=== PATIENT | female | born 1985 | race Caucasian/White ===

== ENCOUNTER 2020-12-31 06:40 | Day surgery (SDC) | payer OTHER ==
[2020-12-31] MEDS ORDERED: Propofol 200 MG/20 ML SDV ONE (07:15)
[2020-12-31] MEDS ORDERED: fentaNYL 100 MCG/2 ML SDV ONE (07:15)
[2020-12-31] MEDS ORDERED: Midazolam 1 MG/ML 2 ML SDV ONE (07:15)
[2020-12-31] MEDS ORDERED: Cyanocobalamin (Vitamin B12) 1,000 MCG/ML SDV IM ONE (08:00)
[2020-12-31] MEDS ORDERED: Glycopyrrolate 0.2 MG/ML 2 ML SDV IVPUSH ONE (08:00)
[2020-12-31] MEDS ORDERED: Lactated Ringers 1,000 ML IV ONE (08:00)
[2020-12-31] MEDS ORDERED: MVI, Adult with Vitamin K 10 ML, Thiamine 200 MG, Zinc/Copper/Manganese/Selenium 1 ML i... IV ONE ×4 (09:00)
[2020-12-31] MEDS ORDERED: ferumoxytoL 510 MG in Sodium Chloride 0.9% 100 ML IV ONE (10:30)
--- NOTE | 2021-01-17 12:49 | OR ---
DATE OF PROCEDURE: 12/31/2020 SURGEON: Sergio Flynn MD PREOPERATIVE DIAGNOSIS: Weight regain status post Tory-en-Y gastric bypass. POSTOPERATIVE DIAGNOSIS: Weight regain status post Tory-en-Y gastric bypass with: 1. Large gastric pouch with focal pouch gastritis. 2. Gastrogastric fistula. PROCEDURE PERFORMED: Upper gastrointestinal endoscopy with biopsies of gastric pouch for CLOtest. ANESTHESIA: IV sedation. INDICATIONS FOR PROCEDURE: This is a 35-year-old status post previous Tory-en-Y gastric bypass. Over the past year, she has had increasing problems with weight regain. Plan is to proceed with upper GI endoscopy for diagnostic purposes. Potential risks including bleeding and perforation were discussed, and the patient wishes to proceed. DETAILS OF PROCEDURE: The patient was taken to the operating room and placed in a left lateral decubitus position. IV sedation was administered after which the upper GI endoscope was passed orally through the length of the esophagus into the gastric pouch, through the gastrojejunostomy, roughly 20 cm into the Tory limb. Findings included a quite large gastric pouch measuring around 11 cm. This was associated with some focal pouch gastritis, likely related to the large amount of to the large pouch. The patient had no stricturing or problems with the gastrojejunostomy or associated with the Tory limb. She did have a gastrogastric fistula at the very distal aspect of the gastric pouch, just proximal to the gastrojejunostomy. This did not quite admit the scope, but appeared to be in the range of 8 to 10 mm and had some inflammation around it likely related to some bile reflux intermittently occurring. Biopsies of the pouch were then taken for CLOtest and sent off to evaluate the patient's H pylori status and the procedure was then concluded. The plan will be to submit a prior authorization letter to insurance carrier regarding revision of the gastric bypass. Sergio Flynn MD /[id number]
== END 2020-12-31 12:00 | disposition home or self-care (01) ==
LOC: JP.SDS 06:40
PROVIDERS: ATTEND Surgery
DX: K29.70 Gastritis, unspecified, without bleeding (principal); K31.6 Fistula of stomach and duodenum; I10 Essential (primary) hypertension; J45.909 Unspecified asthma, uncomplicated; K21.9 Gastro-esophageal reflux disease without esophagitis; E66.01 Morbid (severe) obesity due to excess calories; Z98.84 Bariatric surgery status; Z68.43 Body mass index [BMI] 50.0-59.9, adult
CPT/HCPCS: 87081; J2250; J2704; J3010; J3411; J3420; J3490; J7120; Q0138

== ENCOUNTER 2021-05-16 05:32 | Inpatient (IN) | payer OTHER ==
[2021-05-16] MEDS ORDERED: Celecoxib 200 MG Cap PO ONE (05:51)
[2021-05-16] MEDS ORDERED: Acetaminophen 500 MG Tab PO ONE (05:51)
[2021-05-16] MEDS ORDERED: Scopolamine 1.5 MG Transdermal Patch TOP ONE (06:00)
[2021-05-16] MEDS ORDERED: Dextrose 5%-Lactated Ringers 1,000 ML IV SCH (06:00)
[2021-05-16] MEDS ORDERED: cefOXitin 2 GM in Sodium Chloride 0.9% 50 ML IV ONE ×2 (06:00→07:30)
[2021-05-16] MEDS ORDERED: Albuterol/Ipratropium 3.0-0.5 MG/3 ML Neb Soln NEB ONE (06:00)
[2021-05-16] MEDS ORDERED: cefOXitin 2 GM Vial ONE (06:57)
[2021-05-16] MEDS ORDERED: Glycopyrrolate 0.2 MG/ML 5 ML MDV ONE (07:11)
[2021-05-16] MEDS ORDERED: Succinylcholine 200 MG/10 ML MDV ONE (07:11)
[2021-05-16] MEDS ORDERED: Rocuronium 50 MG/5 ML Vial ONE ×2 (07:11→09:58)
[2021-05-16] MEDS ORDERED: Ondansetron 4 MG/2 ML SDV ONE ×2 (07:11→09:59)
[2021-05-16] MEDS ORDERED: Neostigmine Methylsulfate 1 MG/ML 5 ML Syringe ONE (07:11)
[2021-05-16] MEDS ORDERED: Propofol 200 MG/20 ML SDV ONE (07:11)
[2021-05-16] MEDS ORDERED: Dexamethasone 4 MG/ML SDV ONE (07:11)
[2021-05-16] MEDS ORDERED: fentaNYL 250 MCG/5 ML SDV ONE ×2 (07:12→08:51)
[2021-05-16] MEDS ORDERED: Ketamine 19 MG in Sodium Chloride 0.9% 19.81 ML IV SCH (07:45)
[2021-05-16] MEDS ORDERED: Ketamine 500 MG/5 ML MDV IV SCH (07:45)
[2021-05-16] MEDS ORDERED: CHECK SCOPOLAMINE PATCH DAILY TOP SCH (09:00)
[2021-05-16] MEDS ORDERED: Naloxone 0.4 MG/ML SDV IVPUSH PRN (09:23)
[2021-05-16] MEDS ORDERED: Naloxone 0.4 MG/ML SDV IV PRN (10:00)
[2021-05-16] MEDS: fentaNYL/Normal Saline 600 MCG/30 ML PCA Vial IV PRN ×3 (10:22→21:33)
[2021-05-16] MEDS ORDERED: fentaNYL 100 MCG/2 ML SDV ONE (11:20)
[2021-05-16] MEDS ORDERED: hydrOXYzine HCL 100 MG/2 ML SDV IM ONE (12:30)
[2021-05-16] MEDS ORDERED: Metoclopramide 10 MG/2 ML SDV IVPUSH PRN (13:12)
[2021-05-16] MEDS ORDERED: Acetaminophen 500 MG Tab PO PRN (14:00)
[2021-05-16] MEDS ORDERED: Albuterol/Ipratropium 3.0-0.5 MG/3 ML Neb Soln INH PRN (14:00)
[2021-05-16] MEDS ORDERED: Calcium Gluconate 10% 1 GM/10 ML SDV IVPUSH PRN (14:00)
[2021-05-16] MEDS ORDERED: Ondansetron 4 MG/2 ML SDV IVPUSH PRN (14:00)
[2021-05-16] MEDS ORDERED: diphenhydrAMINE 50 MG/ML SDV IVPUSH PRN (14:00)
[2021-05-16] MEDS ORDERED: Pantoprazole 40 MG Vial IVPUSH SCH (14:00)
[2021-05-16] MEDS ORDERED: Labetalol 20 MG/4 ML Syringe IVPUSH PRN (14:00)
[2021-05-16] MEDS: cefOXitin 2 GM in Sodium Chloride 0.9% 50 ML IV SCH ×2 (14:30→19:54)
[2021-05-16] MEDS: Acetaminophen 500 MG Tab PO SCH ×3 (14:31→21:26)
[2021-05-16] MEDS: Albuterol/Ipratropium 3.0-0.5 MG/3 ML Neb Soln INH SCH ×2 (14:31→20:00)
[2021-05-16] MEDS: hydrOXYzine HCL 100 MG/2 ML SDV IM PRN (14:47)
[2021-05-16] MEDS ORDERED: MVI, Adult with Vitamin K 10 ML, Thiamine 200 MG, Zinc/Copper/Manganese/Selenium 1 ML i... IV SCH ×4 (16:00)
[2021-05-16] MEDS: Heparin Sodium 5,000 Units/ML Vial SUBCUT SCH (18:03)
[2021-05-16] MEDS: Dextrose 5%-Lactated Ringers 1,000 ML IV SCH (22:58)
[2021-05-17] MEDS: cefOXitin 2 GM in Sodium Chloride 0.9% 50 ML IV SCH ×4 (01:38→20:33)
[2021-05-17] MEDS: fentaNYL/Normal Saline 600 MCG/30 ML PCA Vial IV PRN ×4 (03:05→20:35)
[2021-05-17] MEDS: Cyclobenzaprine 10 MG Tab PO PRN ×2 (03:48→12:31)
[2021-05-17] MEDS: hydrOXYzine HCL 100 MG/2 ML SDV IM PRN ×3 (03:48→20:44)
[2021-05-17] MEDS ORDERED: Iopamidol 612 MG/ML 50 ML SDV PO STA (03:53)
[2021-05-17] MEDS: Dextrose 5%-Lactated Ringers 1,000 ML IV SCH ×2 (04:57→11:08)
[2021-05-17] MEDS: Heparin Sodium 5,000 Units/ML Vial SUBCUT SCH ×2 (05:01→18:12)
[2021-05-17] MEDS: Acetaminophen 500 MG Tab PO SCH ×3 (05:01→22:54)
[2021-05-17] MEDS ORDERED: Ondansetron 4 MG Tab.DIS PO PRN (06:56)
[2021-05-17] MEDS: Albuterol/Ipratropium 3.0-0.5 MG/3 ML Neb Soln INH SCH ×4 (06:59→20:34)
--- NOTE | 2021-05-17 07:24 | PN ---
DATE OF SERVICE: 05/17/2021 SUBJECTIVE: Wendy is postop day 1. Upper GI this morning was normal. Oral intake 150. Urine output 1800 via Melendez catheter. JERI drain put out 70 mL of a light red drainage. Pain was difficult to control initially. Dosage via [address] [facility] PILOT was increased off fentanyl. She has been up ambulating, sitting in the chair. Vital signs have been stable and she has been using her incentive spirometer. REVIEW OF SYSTEMS: Remainder of review of systems negative for any pertinent positives and negatives. OBJECTIVE: GENERAL: Wendy is a pleasant 35-year-old female. Alert, orientated. VITAL SIGNS: TPR 98.6, 90, 18, blood pressure 136/80. HEENT: Negative. NECK: Supple. HEART: Regular rate and rhythm. LUNGS: Clear. ABDOMEN: Dressing dry and intact. Abdominal binder is on. EXTREMITIES: Without peripheral edema. ASSESSMENT: 1. Exploratory laparotomy with: a. Esophagogastrectomy with closure of the gastrogastric fistula with Tory-en-Y jejunojejunostomy. b. Small-bowel resection. c. Weight regain, status post Tory-en-Y gastric bypass surgery with large pouch and gastrogastric fistula. 2. Inflammation of gastric pouch up to the esophageal level for proximal pouch of resection, area of small bowel devascularization, and mobilization area of small bowel devascularized, status post mobilization of the Tory limb. 3. Date of procedure: 05/16/2021. Surgeon: Sergio Flynn MD. PLAN: 1. Decrease IV rate to 100 mL per hour. 2. Continue step 1 gastric bypass diet. 3. Discontinue Melendez. 4. May shower. 5. Communication order written to have 3 med cups per hour, 1 every 20 minutes. 6. Continue use of incentive spirometer and ambulation. 7. We will evaluate p.r.n. or in a.m. Hannah Brown PA-C /[id number]
[2021-05-17] MEDS: Celecoxib 200 MG Cap PO SCH ×2 (08:11→20:34)
[2021-05-17] MEDS: Escitalopram 20 MG Tab PO SCH (08:11)
[2021-05-17] MEDS: Losartan 50 MG Tab PO SCH (08:12)
[2021-05-17] MEDS: SCOPOLAMINE PATCH CHECK TOP SCH (08:12)
--- NOTE | 2021-05-17 09:41 | CR ---
[facility] [employer] HISTORY: Postbariatric surgery FINDINGS: Patient swallowed water-soluble contrast. Upright views of the abdomen show no evidence of extravasation or obstruction. There is a surgical drain in the left upper quadrant. IMPRESSION: Status post bariatric surgery No extravasation or obstruction seen
[2021-05-17] MEDS ORDERED: MVI, Adult with Vitamin K 10 ML, Thiamine 200 MG, Zinc/Copper/Manganese/Selenium 1 ML i... IV SCH ×4 (16:00)
[2021-05-17] MEDS: Pantoprazole 40 MG Delayed-Release Granules 1 Packet PO SCH (16:28)
[2021-05-18] MEDS: cefOXitin 2 GM in Sodium Chloride 0.9% 50 ML IV SCH ×3 (01:55→14:24)
[2021-05-18] MEDS: Dextrose 5%-Lactated Ringers 1,000 ML IV SCH ×3 (01:57→23:32)
[2021-05-18] MEDS: Cyclobenzaprine 10 MG Tab PO PRN ×2 (02:04→21:37)
[2021-05-18] MEDS: fentaNYL/Normal Saline 600 MCG/30 ML PCA Vial IV PRN ×2 (04:40→15:40)
[2021-05-18] MEDS: Acetaminophen 500 MG Tab PO SCH ×3 (05:03→21:30)
[2021-05-18] MEDS: Heparin Sodium 5,000 Units/ML Vial SUBCUT SCH ×2 (05:03→17:16)
[2021-05-18] MEDS: hydrOXYzine HCL 100 MG/2 ML SDV IM PRN (05:04)
[2021-05-18] MEDS: Albuterol/Ipratropium 3.0-0.5 MG/3 ML Neb Soln INH SCH ×4 (07:03→21:30)
[2021-05-18] MEDS: traMADol 50 MG Tab PO SCH ×3 (08:07→19:49)
[2021-05-18] MEDS: Celecoxib 200 MG Cap PO SCH ×2 (08:11→21:30)
[2021-05-18] MEDS: Escitalopram 20 MG Tab PO SCH (08:11)
[2021-05-18] MEDS: SCOPOLAMINE PATCH CHECK TOP SCH (08:12)
[2021-05-18] MEDS ORDERED: Cyanocobalamin (Vitamin B12) 1,000 MCG/ML SDV IM ONE (09:00)
--- NOTE | 2021-05-18 09:18 | PN ---
DATE OF SERVICE: 05/18/2021 SUBJECTIVE: Wendy is postop day 2. Tolerating step 1 diet well. She has been up ambulating. Vital signs have been stable. She has been using her RELOCATION DIRECTOR for pain control. She reports her pain anywhere from 6 to 8 out of 10. She has also received Vistaril. Nursing staff reported that her mother has been pushing her RELOCATION DIRECTOR button for her in addition to her pushing it. She has no questions or concerns. OBJECTIVE: GENERAL: Wendy Bullock is a 35-year-old female. She is sleepy this morning. VITAL SIGNS: TPR is 98.5, 93, 18, blood pressure 126/76. HEENT: Negative. NECK: Supple. HEART: Regular rate and rhythm. LUNGS: Clear. ABDOMEN: Dressings dry and intact. Aquacel dressings on. JERI drain is draining a light pink drainage of 50 mL in the past 24 hours. EXTREMITIES: Without peripheral edema. ASSESSMENT: 1. Exploratory laparotomy with: a. Esophagogastrectomy with closure of gastrogastric fistula with Tory-en-Y jejunostomy. b. Small bowel resection. c. Weight gain status post Tory-en-Y gastric bypass surgery with large pouch and gastrogastric fistula. 2. Inflammation of gastric pouch up to the esophageal level for proximal pouch resection area of small bowel devascularization and mobilization. The area of small bowel status post mobilization of the Tory-en-Y. Date of procedure 05/16/2021. Surgeon: Sergio Flynn MD. PLAN: 1. Continue with RELOCATION DIRECTOR. 2. Add tramadol 50 mg q.6 hours scheduled. 3. Step 2 gastric bypass diet with no cereal. 4. Will evaluate p.r.n. or in a.m. Hannah Brown PA-C /[id number]
[2021-05-18] MEDS: Losartan 50 MG Tab PO SCH (09:39)
--- NOTE | 2021-05-18 09:54 | OR ---
DATE OF PROCEDURE: 05/16/2021 SURGEON: Sergio Flynn MD PREOPERATIVE DIAGNOSIS: Gastrogastric fistula. POSTOPERATIVE DIAGNOSES: 1. Gastrogastric fistula associated with a dense inflammation involving gastric pouch, necessitating a proximal level of resection at the distal esophagus. 2. Area of small bowel devascularized mobilization of Tory limb. 3. 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 OPERATIVE PROCEDURE: 1. Exploratory laparotomy: a. Esophagogastrectomy with resection of gastrogastric fistula and subsequent Tory- en-Y esophagojejunostomy (19060). 2. Small bowel resection (20296). ANESTHESIA: General. LIN[employer] SYSTEMS ADMINISTRATOR: Hannah Brown PA-C INDICATIONS FOR PROCEDURE: This is a 35-year-old female with status post previous Tory-en-Y gastric bypass, presenting with some weight regain. Upon investigation, the patient was noted to have a fairly large gastrogastric fistula and the plan is to proceed with resection or transection of the gastrogastric fistula depending on the operative findings. The patient's original operation was through the retrocolic approach in terms of bringing up the Tory limb which would make a laparoscopic approach in this case somewhat dangerous. Given this, the plan is to proceed with an open laparotomy with division of the gastrogastric fistula as well as possible resection depending on operative findings. Potential risks of the procedure including bleeding, infection, injury to underlying viscera, leaks from any GI tract closures were reviewed along with possibility of cardiopulmonary, septic, or hemorrhagic complications leading to , and the patient wishes to proceed. DETAILS OF PROCEDURE: The patient was taken to the operating room and placed in a supine position. After general endotracheal anesthesia was induced, a Melendez catheter was inserted and the abdomen prepped and draped. A midline incision was made in the xiphoid to roughly 3 fingerbreadths above the umbilicus was made and carried down through the full-thickness abdominal wall. Upon entering the peritoneal cavity, general exploration was undertaken. There were some scattered adhesions between the omentum and the anterior abdominal wall, these were taken down. The area of the Tory limb was then identified along with the previous jejunojejunostomy. Likewise, the biliopancreatic limb and common limb were examined. The biliopancreatic limb as reported in the previous operative report was found 50 cm. There did appear to be a stricture at the point where the Tory limb entered the jejunostomy with this causing significant dilation of the Tory limb at a point as it led up to that anastomosis. At this point, the left triangular ligament of the liver was divided which allowed medial mobilization of the left lobe of liver. A 32-Maori orogastric tube was then placed per Anesthesia into the gastric pouch and inferiorly into the Tory limb. The area of the fistula was noted to be extremely hard, almost rock-hard in terms of chronic inflammation which to a significant extent extended up to the level of the proximal pouch and distal most esophagus. Given this, it was felt that resectional approach to this would be most safe approach. At this point, the tube was pulled back such that it was in the gastric pouch and the Tory limb at the gastrojejunostomy was identified and isolated. This was divided with a NICKY carr load. Further resection of the gastric pouch and adjacent stomach was then undertaken. Portion of the adjacent stomach was then resected along with the gastric pouch, and again the level of the inflammation extended up to essentially the esophagogastric junction, and with this tissue not being evidently safe for anastomosis. Given this, the distal esophagus was then encircled and divided with firings of the NICKY black load after pulling the tube up somewhat higher into the esophagus. Remaining soft tissue attachments to the area of the esophagogastrectomy specimen were then taken with joan and the specimen delivered from the field. The staple line at the distal esophagus appeared to be quite satisfactory and good location for the anastomosis. At this point, the Tory limb was dissected away from the surrounding soft tissues. Roughly 10 cm segment of this was devascularized at this point. Due to the mobilization, this segment of small bowel was resected with NICKY joan and divided the bowel and mesentery with NICKY joan. The patient was also noted to have stricture at the point where the Tory limb entered the jejunojejunostomy. Given this, the Tory limb was detached at the level of the jejunojejunostomy and then to facilitate a somewhat better weight loss, we moved downward 200 cm further distally, which would give the patient at this point a biliopancreatic limb of 250 cm. At that point, the Tory limb was detached to the bowel with internal firing of the Endo-NICKY 60 mm stapler. Common opening was closed transversely with the same stapler. Angles of anastomosis and mesenteric defect were closed with some 3-0 Vicryl stitch. The Tory limb at this point was measured and found to be around 48 to 50 cm, which would be sufficient to minimize chances of problems with bilious reflux. The Tory limb was brought up through a retrogastric retrocolic tunnel once again and came up to the divided esophagus without tension. Anvil of a 25 mm EEA was attached to the Levy sump type tube. The latter was brought down through the mouth, and taken out through a small opening in the divided distal esophagus, allowing the anvil likewise to be pulled down into that area. The main body of the EEA stapler was then passed through an opening of the Tory limb, brought up the anvil, united with it thus creating the esophagojejunostomy. Upon removal of the stapler, double donuts of mucosa were noted within it. Small bowel was closed off with a vascular staple line. The esophagojejunostomy was then reinforced with some 3-0 Vicryl seromuscular stitch along with fibrin sealant and appeared to be satisfactorily intact. At this point, the abdomen was irrigated with antibiotic-containing saline solution. A single Lenny- Fuentes drain was taken through a stab wound in the left subcostal area and positioned adjacent to the esophagojejunostomy, and from there up into the splenic fossa. At that point, the midline fascia was approximated with a #2 Vicryl stitch. The subcutaneous tissue was approximated with 2 layers of 3 and 4-0 Vicryl stitch and the skin with joan. Prior to closure, bilateral transversus abdominis plane blocks were then placed and the patient was taken to the recovery room in satisfactory condition. Physician topographical field assistant, Hannah Brown, played an essential role in assisting in this case, helping to position the patient, retract structures as needed, as well as suturing and cutting sutures when indicated. Her presence improved patient safety and decreased operative time. Sergio Flynn MD /[id number]
[2021-05-18] MEDS: Pantoprazole 40 MG Delayed-Release Granules 1 Packet PO SCH (17:16)
[2021-05-19] MEDS: traMADol 50 MG Tab PO SCH ×4 (02:51→20:14)
[2021-05-19] MEDS: Heparin Sodium 5,000 Units/ML Vial SUBCUT SCH ×2 (05:36→18:43)
[2021-05-19] MEDS: Acetaminophen 500 MG Tab PO SCH ×3 (05:36→22:29)
[2021-05-19] MEDS: Cyclobenzaprine 10 MG Tab PO PRN ×2 (05:40→22:33)
[2021-05-19] MEDS: Albuterol/Ipratropium 3.0-0.5 MG/3 ML Neb Soln INH SCH ×4 (07:29→22:28)
[2021-05-19] MEDS: Bisacodyl 5 MG Tab PO SCH ×2 (08:35→22:28)
[2021-05-19] MEDS: Escitalopram 20 MG Tab PO SCH (08:36)
[2021-05-19] MEDS: Celecoxib 200 MG Cap PO SCH ×2 (08:36→22:28)
[2021-05-19] MEDS: Magnesium Hydroxide 400 MG/5 ML Susp 30 ML Cup PO SCH ×2 (08:36→22:28)
--- NOTE | 2021-05-19 08:43 | PN ---
DATE OF SERVICE: 05/19/2021 SUBJECTIVE: Wendy is postop day 3. She reports her pain is a little bit better controlled. She has used lots of her fentanyl DOLL DRESSER and has scheduled tramadol. Passing small amounts of flatus. Oral intake in the past 24 hours was 1960, urine output 28 at 8:25, and JERI drain put out 80 mL of a light pink drainage. Remainder of review of systems negative for any pertinent positives and negatives. OBJECTIVE: GENERAL: Wendy is a pleasant 35-year-old female. She is on quite sleepy this morning. VITAL SIGNS: TPR is 97, 89, 16. Blood pressure 120/76. HEENT: Negative. NECK: Supple. HEART: Regular rate and rhythm. LUNGS: Clear. ABDOMEN: Aquacel dressing is on. JERI drain as above and abdominal binder is on. EXTREMITIES: Without peripheral edema. ASSESSMENT: 1. Exploratory laparotomy. a. Esophagogastrectomy with resection of gastrogastric fistula and subsequent Tory- en-Y esophagojejunostomy. b. Small-bowel resection. POSTOPERATIVE DIAGNOSES: 1. Gastrogastric fistula associated with dense inflammation involving gastric pouch necessitating a proximal level of resection of the distal esophagus. 2. Area of small bowel devascularized during mobilization of the Tory limb. 3. Stricture at the junction of the Tory limb with jejunojejunostomy. Date of surgical procedure: 05/16/2021. Surgeon: Sergio Flynn MD. PLAN: 1. Dulcolax 2 tabs b.i.d. p.o. until bowel movement. 2. Milk of magnesia 30 mL b.i.d. p.o. scheduled until bowel movement. 3. Atarax 50 mg q.4 hours p.r.n. pain. 4. Discontinue IM Vistaril. 5. Discontinue JERI drain. 6. We will evaluate p.r.n. or in a.m. Hannah Brown PA-C /[id number]
[2021-05-19] MEDS: Losartan 50 MG Tab PO SCH (08:46)
[2021-05-19] MEDS: hydrOXYzine HCl 25 MG Tab PO PRN ×2 (11:11→20:16)
[2021-05-19] MEDS: Pantoprazole 40 MG Delayed-Release Granules 1 Packet PO SCH (16:49)
[2021-05-20] MEDS: traMADol 50 MG Tab PO SCH ×2 (02:53→08:21)
[2021-05-20] MEDS: Acetaminophen 500 MG Tab PO SCH (05:43)
[2021-05-20] MEDS: Heparin Sodium 5,000 Units/ML Vial SUBCUT SCH (05:44)
[2021-05-20] MEDS ORDERED: Magnesium Hydroxide 400 MG/5 ML Susp 30 ML Cup PO PRN (07:43)
[2021-05-20] MEDS: Albuterol/Ipratropium 3.0-0.5 MG/3 ML Neb Soln INH SCH (07:50)
[2021-05-20] MEDS: Celecoxib 200 MG Cap PO SCH (08:20)
[2021-05-20] MEDS: Escitalopram 20 MG Tab PO SCH (08:21)
[2021-05-20] MEDS: Magnesium Hydroxide 400 MG/5 ML Susp 30 ML Cup PO SCH (08:22)
[2021-05-20] MEDS: Bisacodyl 5 MG Tab PO SCH (08:22)
[2021-05-20] MEDS: Losartan 50 MG Tab PO SCH (08:22)
--- NOTE | 2021-05-20 12:18 | DISCH ---
FINAL DIAGNOSES: 1. Weight regain, status post Tory-en-Y gastric bypass with large pouch and gastrogastric fistula. 2. Dense inflammation involving gastric pouch necessitating esophageal level from proximal point of resection. 3. Area of small bowel devascularized, status post mobilization of Tory limb. SECONDARY DIAGNOSES: Polycystic ovary syndrome, history of migraines, history of reflux disease, dysthymic disorder, history of asthma, history of hypertension. OPERATIVE PROCEDURES: Done on 05/16. Exploratory laparotomy with: 1. Esophagogastrectomy with closure of gastrogastric fistula and Tory-en-Y esophagojejunostomy. 2. Small bowel resection. SUMMARY: This is a 35-year-old female status post previous Tory-en-Y gastric bypass done in [place]. She presents with weight regain with associated gastrogastric fistula. At the time of exploration, she was noted to have intense inflammation involving the gastric pouch up to the level of the esophagus. Therefore, esophagogastrectomy was performed, which included division of the gastrogastric fistula. A portion of small bowel needed to be resected. That was devascularized status post mobilization of Tory limb. Postoperatively, she has done well and will be discharged home. MEDICATIONS ON DISCHARGE: Include those that she was on preoperatively other than for iron and other supplements plus Flexeril 10 mg p.o. q.8 hours p.r.n., Atarax 50 mg p.o. q.6 hours p.r.n., Celebrex 200 mg p.o. b.i.d., and tramadol 50 mg q.6 hours p.r.n. pain, #18. She will be instructed to stay on step 2, i.e., liquid diet until the first appointment, which will be with Hannah Brown at [facility] [place] on 05/26/2021. /[id number]
== END 2021-05-20 09:40 | disposition home or self-care (01) | DRG 327 ==
LOC: JP.SDS 05:32 → JP.MS 05:32 → EDSTATUS 08:45 → JP.MS 12:05
PROVIDERS: ADMIT Surgery; ATTEND Surgery
PROC: 0D150ZA Bypass Esophagus to Jejunum, Open Approach (ICD-10-PCS; principal; 2021-05-16)
PROC: 0DB40ZZ Excision of Esophagogastric Junction, Open Approach (ICD-10-PCS; 2021-05-16)
PROC: 0DB60ZZ Excision of Stomach, Open Approach (ICD-10-PCS; 2021-05-16)
PROC: 0DT80ZZ Resection of Small Intestine, Open Approach (ICD-10-PCS; 2021-05-16)
DX: K31.6 Fistula of stomach and duodenum (principal); Z68.43 Body mass index [BMI] 50.0-59.9, adult; K91.89 Other postprocedural complications and disorders of digestive system; K21.9 Gastro-esophageal reflux disease without esophagitis; I10 Essential (primary) hypertension; J45.909 Unspecified asthma, uncomplicated; E28.2 Polycystic ovarian syndrome; F34.1 Dysthymic disorder; E66.01 Morbid (severe) obesity due to excess calories; F41.9 Anxiety disorder, unspecified; F32.A Depression, unspecified; Z90.49 Acquired absence of other specified parts of digestive tract; Z90.89 Acquired absence of other organs; Z90.710 Acquired absence of both cervix and uterus; Z90.3 Acquired absence of stomach [part of]; Z79.899 Other long term (current) drug therapy; Z79.1 Long term (current) use of non-steroidal anti-inflammatories (NSAID); Z88.5 Allergy status to narcotic agent; Z88.8 Allergy status to other drugs, medicaments and biological substances
CPT/HCPCS: 36415; 74240; 74240-26; 86850; 86900; 86901; 88302; 88307; 94640; A9270-GY; C9113; J0171; J0330; J0694; J1100; J1644; J2405; J2704; J2710; J2765; J2795; J3010; J3410; J3411; J3420; J3490; J7121; J7620-GY